=== PATIENT | male | born 1930 | race Caucasian/White ===

== ENCOUNTER → 2016-10-14 | Outpatient (CLI) | payer MEDICARE, OTHER ==
[~2016-10-14] MED LIST: ALLO300T2 PO; AML5T PO; ASPI-231 PO; ATOR10TA PO; BRIN1SUS OP; CARV40CA PO; ESOM40CA39 PO; EZET10TA2 PO; GABA300C PO; LORA-205 PO; LUBI8CAP4 PO; OLME20TA19 PO; TICA90TA PO; TRAV0.00 OP
[2016-10-14 13:37] LABS: Basophils # (auto) 0 uL; Basophils % (auto) 0.3 % (0.0-2.0); Eosinophils # (auto) 0 uL; Hematocrit 29.1 % (41.0-53.0); Hemoglobin 9.6 g/dL (13.5-17.5); Lymphocytes # (auto) 0.5 uL; Lymphocytes % (auto) 7.8 % (10.0-50.0); Mean Corpuscular Hemoglobin 30.9 pg (28.0-32.0); Mean Corpuscular Hgb Conc. 33.1 g/dL (32.0-36.0); Mean Corpuscular Volume 93.2 fL (80.0-100.0); Mean Platelet Volume 8.1 fL (7.4-10.4); Monocytes # (auto) 1.1 uL; Monocytes % (auto) 17.7 % (0.0-12.0); Neutrophils # (auto) 4.8 uL; Neutrophils % (auto) 74.2 % (37.0-80.0); Platelet Count (auto) 330 10^3/uL (140-450); Red Cell Distribution Width 16.3 % (11.6-16.0); White Blood Cell 6.4 10^3/uL (4.4-10.8)
== END | disposition home or self-care (01) ==
LOC: LAB 12:58
PROVIDERS: ATTEND Internal Medicine
DX: C34.2 Malignant neoplasm of middle lobe, bronchus or lung (principal); C61 Malignant neoplasm of prostate
CPT/HCPCS: 36415; 85025

== ENCOUNTER → 2016-10-24 | Outpatient (CLI) | payer MEDICARE, OTHER ==
[2016-10-24 10:00] VITALS: BP 166/80
[2016-10-24 10:10] VITALS: BP 171/84
[2016-10-24 12:38] LABS: Hemoglobin 9.6 g/dL (13.5-17.5); Mean Corpuscular Hemoglobin 31.2 pg (28.0-32.0); Mean Corpuscular Volume 94.6 fL (80.0-100.0); Mean Platelet Volume 8.6 fL (7.4-10.4); Platelet Count (auto) 156 10^3/uL (140-450); Red Cell Distribution Width 17.2 % (11.6-16.0); SUSPECT VIEW TRANSMISSION; White Blood Cell 5.6 10^3/uL (4.4-10.8)
[2016-10-24 12:47] LABS: Metamyelocytes % 0; Myelocytes % 0; Promyelocytes % 0; Reactive Lymphocytes 0
[2016-10-24 13:08] LABS: Albumin 3.5 g/dL (3.4-5.0); BUN/Creatinine Ratio 34.1; Bilirubin, Total 0.5 mg/dL (0.2-1.0); Calcium 8.6 mg/dL (8.5-10.1); Potassium 4.7 mmol/L (3.5-5.1); Total Protein 6.8 g/dL (6.4-8.2)
[2016-10-24 13:13] LABS: Platelet Estimate Adequate
[2016-10-24 13:14] LABS: Anisocytosis Slight
== END | disposition home or self-care (01) ==
LOC: CHF HDHVI 09:56
PROVIDERS: ATTEND Internal Medicine Cardiovascular Disease
DX: I10 Essential (primary) hypertension (principal); D64.9 Anemia, unspecified; C61 Malignant neoplasm of prostate; C34.2 Malignant neoplasm of middle lobe, bronchus or lung
CPT/HCPCS: 36415; 80053; 83615; 85007; 85027; 85049; G0463

== ENCOUNTER → 2016-11-07 | Outpatient (CLI) | payer MEDICARE, OTHER ==
[~2016-11-07] MED LIST changes: +ADENOSINE 58 MG in GIVE UN-DILUTED 0 ML IV ONE; +ADENOSINE 90 MG/30 ML INJ IV ONE
== END | disposition home or self-care (01) ==
LOC: Rad HDHVI 08:25
PROVIDERS: ATTEND Internal Medicine Cardiovascular Disease
DX: I10 Essential (primary) hypertension (principal); I25.2 Old myocardial infarction; I25.10 Atherosclerotic heart disease of native coronary artery without angina pectoris; E78.00 Pure hypercholesterolemia, unspecified; Z95.0 Presence of cardiac pacemaker
CPT/HCPCS: 78452; 93005; 96374; 96375; A9500; J0153

== ENCOUNTER → 2016-11-08 | Outpatient (CLI) | payer MEDICARE, OTHER ==
[~2016-11-08] MED LIST changes: -ADENOSINE 58 MG in GIVE UN-DILUTED 0 ML IV ONE; -ADENOSINE 90 MG/30 ML INJ IV ONE
[2016-11-08 10:59] LABS: Albumin 3.1 g/dL (3.4-5.0); BUN/Creatinine Ratio 26.4; Bilirubin, Total 0.3 mg/dL (0.2-1.0); Calcium 8.1 mg/dL (8.5-10.1); Total Protein 6.1 g/dL (6.4-8.2)
[2016-11-08 15:00] LABS: DEFINITIVE VIEW TRANSMISSION; Hematocrit 21.5 % (41.0-53.0); Mean Corpuscular Hemoglobin 30.7 pg (28.0-32.0); Mean Corpuscular Hgb Conc. 32.1 g/dL (32.0-36.0); Mean Corpuscular Volume 95.6 fL (80.0-100.0); Platelet Count (auto) 65 10^3/uL (140-450); Red Cell Distribution Width 19.2 % (11.6-16.0); SUSPECT VIEW TRANSMISSION; White Blood Cell 2.6 10^3/uL (4.4-10.8)
[2016-11-08 15:03] LABS: Hemoglobin 6.9 g/dL (13.5-17.5)
[2016-11-08 15:04] LABS: Metamyelocytes % 0; Myelocytes % 0; Promyelocytes % 0; Reactive Lymphocytes 0
[2016-11-08 15:09] LABS: Anisocytosis Slight; Platelet Estimate Decreased
== END | disposition home or self-care (01) ==
LOC: LAB 10:03
PROVIDERS: ATTEND Internal Medicine
DX: C34.2 Malignant neoplasm of middle lobe, bronchus or lung (principal); C61 Malignant neoplasm of prostate
CPT/HCPCS: 36415; 80053; 83615; 85007; 85027

== ENCOUNTER → 2016-11-10 | Outpatient (CLI) | payer MEDICARE, OTHER | END | disposition home or self-care (01) | LOC: LAB 09:41 | PROVIDERS: ATTEND Internal Medicine | DX: C61 Malignant neoplasm of prostate (principal); C34.2 Malignant neoplasm of middle lobe, bronchus or lung; D63.1 Anemia in chronic kidney disease | CPT/HCPCS: 86850; 86900; 86901; 86920 ==

== ENCOUNTER → 2016-11-10 | Outpatient (CLI) | payer MEDICARE, OTHER | END | disposition home or self-care (01) | LOC: Rad HDHVI 12:41 | PROVIDERS: ATTEND Internal Medicine Cardiovascular Disease | DX: I11.0 Hypertensive heart disease with heart failure (principal); I25.10 Atherosclerotic heart disease of native coronary artery without angina pectoris; Z95.0 Presence of cardiac pacemaker; E78.00 Pure hypercholesterolemia, unspecified; D70.1 Agranulocytosis secondary to cancer chemotherapy; T45.1X5A Adverse effect of antineoplastic and immunosuppressive drugs, initial encounter | CPT/HCPCS: 93306 ==

== ENCOUNTER 2016-11-11 07:05 | Day surgery (SDC) | payer MEDICARE, OTHER | END 2016-11-11 12:29 | disposition home or self-care (01) | LOC: CATH 07:05 | PROVIDERS: ATTEND Internal Medicine | DX: D64.9 Anemia, unspecified (principal); Z95.1 Presence of aortocoronary bypass graft; F41.9 Anxiety disorder, unspecified | CPT/HCPCS: 36430; J1642; J7040 ==

== ENCOUNTER → 2016-11-17 | Outpatient (CLI) | payer MEDICARE, OTHER ==
[2016-11-17 10:00] VITALS: BP 145/69
[2016-11-17 12:33] LABS: DEFINITIVE VIEW TRANSMISSION; Hemoglobin 8.3 g/dL (13.5-17.5); Mean Corpuscular Hgb Conc. 33.2 g/dL (32.0-36.0); Mean Corpuscular Volume 96.2 fL (80.0-100.0); Mean Platelet Volume 8.2 fL (7.4-10.4); Platelet Count (auto) 31 10^3/uL (140-450); Red Cell Distribution Width 19.1 % (11.6-16.0); SUSPECT VIEW TRANSMISSION
[2016-11-17 12:46] LABS: Albumin 3.2 g/dL (3.4-5.0); BUN/Creatinine Ratio 34.1; Bilirubin, Total 0.4 mg/dL (0.2-1.0); Calcium 8.5 mg/dL (8.5-10.1); Potassium 4.6 mmol/L (3.5-5.1); Total Protein 6.2 g/dL (6.4-8.2)
[2016-11-17 14:12] LABS: White Blood Cell 0.5 10^3/uL (4.4-10.8)
[2016-11-17 14:13] LABS: Metamyelocytes % 0; Myelocytes % 0; Promyelocytes % 0; Reactive Lymphocytes 0
[2016-11-17 14:51] LABS: Platelet Estimate Decreased
[2016-11-17 14:52] LABS: Anisocytosis Slight
== END | disposition home or self-care (01) ==
LOC: CHF HDHVI 09:54
PROVIDERS: ATTEND Internal Medicine Cardiovascular Disease
DX: I10 Essential (primary) hypertension (principal); I11.9 Hypertensive heart disease without heart failure; D64.9 Anemia, unspecified
CPT/HCPCS: 36415; 80053; 83036; 85007; 85027; G0463

== ENCOUNTER 2016-11-20 11:03 | Inpatient (IN) | payer MEDICARE, OTHER ==
[2016-11-20] VITALS (14 sets, daily range): BP systolic 60–156; BP diastolic 37–90
[~2016-11-20] VITALS: Ht 182.9 cm; Wt 73.0 kg
[2016-11-20] MEDS ORDERED: PROPOFOL 100 ML IV SCH ×3 (11:14)
[2016-11-20] MEDS ORDERED: MIDAZOLAM DRIP 100 mg/100mL NS 100 ML IV SCH ×3 (11:14)
[2016-11-20] MEDS ORDERED: VASOPRESSIN 50 UNITS in SODIUM CHL 0.9% 247.5 ML IV SCH (11:15)
[2016-11-20] MEDS ORDERED: NOREPINEPHRINE BITARTRATE 250 ML IV SCH (11:15)
[2016-11-20 12:15] LABS: Basophils # (auto) 0 uL; DEFINITIVE VIEW TRANSMISSION; Eosinophils # (auto) 0 uL; Hematocrit 22.4 % (41.0-53.0); Hemoglobin 7.2 g/dL (13.5-17.5); Lymphocytes # (auto) 0.1 uL; Mean Corpuscular Hemoglobin 30.9 pg (28.0-32.0); Mean Corpuscular Volume 96.3 fL (80.0-100.0); Mean Platelet Volume 8.6 fL (7.4-10.4); Monocytes # (auto) 0 uL; Monocytes % (auto) 2.8 % (0.0-12.0); Neutrophils # (auto) 0.1 uL; Neutrophils % (auto) 33.5 % (37.0-80.0); Red Cell Distribution Width 18.3 % (11.6-16.0); SUSPECT VIEW TRANSMISSION
[2016-11-20] MEDS ORDERED: VANCOMYCIN 1GM/250ML D5W 250 ML IV ONE (12:15)
[2016-11-20] MEDS ORDERED: cefTRIAXone 1GM/50ML D5W 50 ML IV ONE (12:15)
[2016-11-20 12:35] LABS: Partial Thromboplastin Time 38.3 sec (22.64-33.71)
[2016-11-20 12:40] LABS: Albumin 2.2 g/dL (3.4-5.0); BUN/Creatinine Ratio 25.1; Bilirubin, Total 0.8 mg/dL (0.2-1.0); Calcium 6.8 mg/dL (8.5-10.1); Lymphocytes % (auto) 57.7 % (10.0-50.0); Total Protein 4.9 g/dL (6.4-8.2)
[2016-11-20 12:41] LABS: Platelet Count (auto) 7 10^3/uL (140-450); White Blood Cell 0.2 10^3/uL (4.4-10.8)
[2016-11-20 12:43] LABS: INR 1.32 (0.9-1.15); Prothrombin Time 13.6 sec (9.37-12.3)
[2016-11-20 12:44] LABS: Platelet Estimate Markedly Decreased
[2016-11-20] MEDS ORDERED: DOPamine 1600MCG/ML 250 ML IV ONE (12:48)
== END 2016-11-20 14:50 | disposition expired | DRG 871 ==
LOC: ICU WEST 11:03
PROVIDERS: ADMIT Internal Medicine Cardiovascular Disease; ATTEND Internal Medicine Cardiovascular Disease
PROC: 5A1935Z Respiratory Ventilation, Less than 24 Consecutive Hours (ICD-10-PCS; principal; 2016-11-20)
PROC: 0BH17EZ Insertion of Endotracheal Airway into Trachea, Via Natural or Artificial Opening (ICD-10-PCS; 2016-11-20)
DX: A41.9 Sepsis, unspecified organism (principal); D61.810 Antineoplastic chemotherapy induced pancytopenia; R65.21 Severe sepsis with septic shock; C34.90 Malignant neoplasm of unspecified part of unspecified bronchus or lung; Z98.61 Coronary angioplasty status; Z95.1 Presence of aortocoronary bypass graft; Z66 Do not resuscitate
CPT/HCPCS: 36415; 71010; 80053; 85025; 85610; 85730; 86850; 86900; 86901; 86920; 93005; 94002; J0696; J3490